=== PATIENT | female | born 1995 | race Caucasian/White ===

== ENCOUNTER 2021-09-06 08:41 | Emergency (ER) | payer OTHER, SELFPAY ==
[2021-09-06 08:43] VITALS: BP 131/81; PULSE 91; RESP 20; TEMP 36.8; O2SAT 100
[2021-09-06] MEDS: diphenhydrAMINE HCl INJ 50 MG/ML VIAL IV PUSH (09:11)
[2021-09-06] MEDS: methylPREDNISolone SOD SUCC 125 MG VIAL IV PUSH (09:11)
[2021-09-06] MEDS: FAMOTIDINE 20 MG/2 ML VIAL IV PUSH (09:11)
--- NOTE | 2021-09-06 09:24 | ED.ALLEREA ---
HPI - Allergic Reaction General Chief complaint: Allergic Reaction Stated complaint: Allergic Reaction Time Seen by Provider: 09/06/21 08:51 History of Present Illness HPI narrative: 25-year-old female presents emergency room with acute onset of a rash. Patient states that she was taking a different [id number] cranberry tab yesterday, and immediately realized to rash. Patient states that she took Benadryl yesterday with little benefit. Patient denies any shortness of breath, difficulty breathing, or dysphagia. Rash covers her arms and legs. Reports the rash is pruritic Related Data Allergies Allergy/AdvReac Type Severity Reaction Status Date / Time amoxicillin Allergy Severe Hives Verified 12/21/20 15:33 azithromycin AdvReac Severe nausea and Verified 12/21/20 15:33 [From Zithromax Z-Damir] diarrhea Review of Systems Review of Systems: CONSTITUTIONAL: Denies fever, chills, or sweats. EYES: Denies visual changes, redness, or discharge. ENT: Denies rhinorrhea, congestion, sore throat, or otalgia. CARDIOVASCULAR: Denies chest pain, palpitations, or edema. RESPIRATORY: Denies cough or dyspnea. GASTROINTESTINAL: Denies abdominal pain, nausea, vomiting, or diarrhea. GENITOURINARY: Denies dysuria or hematuria. SKIN: Reports rash or itching. MUSCULOSKELETAL: Denies back pain, joint pain, or myalgia. NEUROLOGIC: Denies headache, numbness, dizziness, or weakness. PSYCHIATRIC: Denies anxiety or depression. FOR[facility]LY [facility] Family History Family History Father Heart disease Hypertension Hyperlipidemia Grandparent Lung cancer Social History Social History Smoking status: Never smoker Alcohol intake: current Alcohol use details: less than one/week Substance use: never Substance use type: does not use Exam Narrative: GENERAL: Well-appearing, well-nourished, and in no acute distress. HEAD: Normocephalic, atraumatic. EYES: PERRLA and EOMI. ENT: Nares clear, no rhinorrhea or epistaxis. Mucous membranes moist. CHEST: Clear to auscultation. No respiratory distress. No wheezes rales or rhonchi HEART: Regular rate and rhythm. No murmur heard. Normal peripheral pulses. EXTREMITIES: Normal range of motion. No edema. SKIN: Erythematous, maculopapular rash diffusely distributed over the anterior surfaces of the lower and upper extremities NEURO: No focal deficits. Alert and oriented x3. PSYCH: Normal mood and affect. Course Vital Signs Vital signs: Vital Signs Temperature 36.8 C 09/06/21 08:43 Pulse Rate 91 09/06/21 08:43 Respiratory Rate 20 09/06/21 08:43 Blood Pressure 131/81 09/06/21 08:43 Pulse Oximetry 100 09/06/21 08:43 Temperature 36.8 C 09/06/21 08:43 Pulse Rate 91 09/06/21 08:43 Respiratory Rate 20 09/06/21 08:43 Blood Pressure 131/81 09/06/21 08:43 Pulse Oximetry 100 09/06/21 08:43 Discharge Plan Discharge Prescriptions: No Action Lo Loestrin Fe 1 mg-10 mcg (24)/10 mcg (2) tablet 1 tablet PO DAILY Qty: 28 RF: 6
--- NOTE | 2021-09-06 09:31 | ED.ALLEREA ---
HPI - Allergic Reaction General Chief complaint: Allergic Reaction Stated complaint: Allergic Reaction Time Seen by Provider: 09/06/21 08:51 Related Data Allergies Allergy/AdvReac Type Severity Reaction Status Date / Time amoxicillin Allergy Severe Hives Verified 12/21/20 15:33 azithromycin AdvReac Severe nausea and Verified 12/21/20 15:33 [From Zithromax Z-Damir] diarrhea PMFSH Family History Family History Father Heart disease Hypertension Hyperlipidemia Grandparent Lung cancer Social History Social History Smoking status: Never smoker Alcohol intake: current Alcohol use details: less than one/week Substance use: never Substance use type: does not use Course Vital Signs Vital signs: Vital Signs Temperature 36.8 C 09/06/21 08:43 Pulse Rate 91 09/06/21 08:43 Respiratory Rate 20 09/06/21 08:43 Blood Pressure 131/81 09/06/21 08:43 Pulse Oximetry 100 09/06/21 08:43 Temperature 36.8 C 09/06/21 08:43 Pulse Rate 84 09/06/21 10:18 Respiratory Rate 17 09/06/21 10:18 Blood Pressure 142/86 H 09/06/21 10:18 Pulse Oximetry 99 09/06/21 10:18 Discharge Plan Discharge Clinical Impression: Urticaria Allergic reaction Qualifiers: Encounter type: initial encounter Qualified Code(s): T78.40XA - Allergy, unspecified, initial encounter Patient Disposition: Home, Self-Care Condition: Stable Instructions: Antibiotic Form Prescriptions: New prednisone 20 mg tablet 40 mg PO DAILY Qty: 10 RF: 0 No Action Lo Loestrin Fe 1 mg-10 mcg (24)/10 mcg (2) tablet 1 tablet PO DAILY Qty: 28 RF: 6 Follow-up/Referrals: Keila Dutton MD [Primary Care Provider] - Time of Disposition: :
[2021-09-06 10:18] VITALS: BP 142/86; PULSE 84; RESP 17; O2SAT 99
== END 2021-09-06 10:19 | disposition home or self-care (01) ==
PROVIDERS: Emergency Provider Nurse Practitioner Family; PCP Family Medicine
DX: T78.40XA Allergy, unspecified, initial encounter (principal); L50.9 Urticaria, unspecified
CPT/HCPCS: 96374; 96375; 99284; J1200; J2930